=== PATIENT | female | born 1980 | race Caucasian/White ===

== ENCOUNTER 2018-12-17 11:46 | Outpatient (CLI) | payer MEDICAID ==
[2018-12-17] MEDS ORDERED: LACTATED RINGER'S 1,000 ML IV (15:00)
== END 2018-12-17 15:40 | disposition home or self-care (01) ==
LOC: OBT 11:46 → L-D 11:48 → OBT 15:40
DX: O26.853 Spotting complicating pregnancy, third trimester (principal); Z3A.37 37 weeks gestation of pregnancy
CPT/HCPCS: 76818

== ENCOUNTER 2018-12-19 13:35 | Inpatient (IN) | payer MEDICAID ==
[2018-12-19] MEDS: LACTATED RINGER'S 1,000 ML IV ×2 (16:37→16:55)
[2018-12-20] MEDS: LACTATED RINGER'S 1,000 ML IV ×2 (00:34→08:48)
== END 2018-12-20 14:15 | disposition home or self-care (01) | DRG 833 ==
LOC: OBT 13:35 → L-D 13:36 → OBT 15:30 → L-D 15:30
DX: O46.93 Antepartum hemorrhage, unspecified, third trimester (principal); O09.523 Supervision of elderly multigravida, third trimester; Z3A.37 37 weeks gestation of pregnancy
CPT/HCPCS: 76818

== ENCOUNTER 2019-01-06 15:15 | Inpatient (IN) | payer MEDICAID ==
[2019-01-06] MEDS ORDERED: CARBOPROST 250 MCG INJ IM (17:00)
[2019-01-06] MEDS ORDERED: MISOPROSTOL 200 MCG TAB PR (17:00)
[2019-01-06] MEDS ORDERED: METHYLERGONOVINE 0.2 MG INJ IM (17:00)
[2019-01-06] MEDS ORDERED: BUTORPHANOL 2 MG INJ IV ×2 (17:00)
[2019-01-06] MEDS ORDERED: OXYTOCIN 30 UNITS/LR 500 ML IV (17:00)
[2019-01-06] MEDS ORDERED: IBUPROFEN 600 MG TAB PO (17:00)
[2019-01-06] MEDS ORDERED: LIDOCAINE 1% (MPF) 30 ML INJ INJ (17:00)
[2019-01-06] MEDS: LACTATED RINGER'S 1,000 ML IV ×2 (17:32→22:06)
[2019-01-06 17:55] LABS: ADD MAN DIFF? NO
[2019-01-06 18:03] LABS: BASOPHILS % 0.4 % (0.0-2.0); EOSINOPHILS # 0.3 10^3/ul (0.0-0.5); EOSINOPHILS % 3.5 % (0.0-7.0); HEMATOCRIT 37.5 % (37.0-47.0); HEMOGLOBIN 12.8 g/dl (12.0-16.0); LYMPHOCYTES # 1.7 10^3/ul (0.8-2.9); LYMPHOCYTES % 19.1 % (15.0-51.0); MEAN CORPUSCULAR HEMOGLOBIN 30.3 pg (29.0-33.0); MEAN CORPUSCULAR HGB CONC 34.1 g/dl (32.0-37.0); MEAN CORPUSCULAR VOLUME 88.7 fl (82.0-101.0); MEAN PLATELET VOLUME 10.9 fl (7.4-10.4); MONOCYTE # 0.8 10^3/ul (0.3-0.9); MONOCYTES % 8.7 % (0.0-11.0); NEUTROPHIL # 6.1 10^3/ul (1.6-7.5); NEUTROPHILS % 67.4 % (39.0-77.0); PLATELET COUNT 229 10^3/UL (140-415); RED BLOOD COUNT 4.23 10^6/ul (4.20-5.40); RED CELL DISTRIBUTION WIDTH 13.5 % (11.5-14.5)
[2019-01-06 18:24] LABS: INR 0.87; PROTIME 11.9 Sec (11.9-14.9); PT RATIO 0.9
[2019-01-06 18:25] LABS: PARTIAL THROMBOPLASTIN TIME 28.1 Sec (23.0-35.0)
[2019-01-06] MEDS: OXYTOCIN 30 UNITS/LR 500 ML IV (18:39)
[2019-01-06 18:53] LABS: HEPATITIS B SURFACE ANTIGEN NEGATIVE (NEGATIVE)
[2019-01-06] MEDS ORDERED: NALOXONE (0.4 MG/ML) INJ IV (22:00)
[2019-01-06] MEDS ORDERED: DIPHENHYDRAMINE 50 MG INJ IV (22:00)
[2019-01-06] MEDS ORDERED: ONDANSETRON 4 MG INJ IV (22:00)
[2019-01-06] MEDS ORDERED: KETOROLAC 30 MG INJ IV (22:00)
[2019-01-06] MEDS ORDERED: FENTAnyl 2MCG/ML-ROPIV 0.2% 100 ML BAG EPI (22:00)
[2019-01-06] MEDS ORDERED: HYDROmorphONE 0.5 MG/0.5 ML SYG IV ×2 (22:00)
[2019-01-07] MEDS: LACTATED RINGER'S 1,000 ML IV (00:37)
[2019-01-07] MEDS ORDERED: OXYTOCIN 30 UNITS/LR 500 ML IV ×2 (03:37→04:00)
[2019-01-07] MEDS: OXYTOCIN 30 UNITS/LR 500 ML IV ×2 (03:45)
[2019-01-07] MEDS ORDERED: LANOLIN HPA 1 PKT TOP (04:00)
[2019-01-07] MEDS ORDERED: CARBOPROST 250 MCG INJ IM (04:00)
[2019-01-07] MEDS ORDERED: METHYLERGONOVINE 0.2 MG INJ IM (04:00)
[2019-01-07] MEDS ORDERED: MISOPROSTOL 200 MCG TAB PR (04:00)
[2019-01-07] MEDS ORDERED: ACETAMINOPHEN 325 MG TAB PO (04:00)
[2019-01-07] MEDS ORDERED: NACL 0.9% 3 ML SYG IV (04:00)
[2019-01-07] MEDS ORDERED: ONDANSETRON 4 MG INJ IV (04:00)
[2019-01-07] MEDS: IBUPROFEN 600 MG TAB PO ×2 (05:26→17:38)
[2019-01-07] MEDS: BENZOCAINE 20% 56 ML SPRAY TOP (09:24)
[2019-01-07] MEDS: SENNA/DOCUSATE NA (8.6MG/50MG) TAB PO ×2 (09:24→22:28)
[2019-01-07] MEDS: OXYCODONE/ASPIRIN (4.88/325) TAB PO ×2 (13:12→22:28)
[2019-01-07 17:23] LABS: RAPID PLASMA REAGIN NONREACTIVE (NR)
[2019-01-07] MEDS ORDERED: OXYCODONE/ASPIRIN (4.88/325) TAB PO ×2 (22:00)
[2019-01-08] MEDS: OXYCODONE/ASPIRIN (4.88/325) TAB PO (03:35)
[2019-01-08] MEDS: IBUPROFEN 600 MG TAB PO ×4 (06:13→18:28)
[2019-01-08 08:02] LABS: ADD MAN DIFF? NO
[2019-01-08 08:10] LABS: WHITE BLOOD COUNT 10.7 10^3/ul (4.8-10.8)
[2019-01-08 08:10] LABS: BASOPHIL # 0.1 10^3/ul (0.0-0.1); BASOPHILS % 0.6 % (0.0-2.0); EOSINOPHILS # 0.5 10^3/ul (0.0-0.5); EOSINOPHILS % 4.6 % (0.0-7.0); HEMOGLOBIN 11.4 g/dl (12.0-16.0); LYMPHOCYTES # 2.4 10^3/ul (0.8-2.9); LYMPHOCYTES % 22.2 % (15.0-51.0); MEAN CORPUSCULAR HGB CONC 33.5 g/dl (32.0-37.0); MEAN CORPUSCULAR VOLUME 89.5 fl (82.0-101.0); MEAN PLATELET VOLUME 10.6 fl (7.4-10.4); MONOCYTE # 0.7 10^3/ul (0.3-0.9); MONOCYTES % 6.1 % (0.0-11.0); NEUTROPHILS % 65.8 % (39.0-77.0); PLATELET COUNT 202 10^3/UL (140-415); RED CELL DISTRIBUTION WIDTH 13.8 % (11.5-14.5)
[2019-01-08] MEDS: SENNA/DOCUSATE NA (8.6MG/50MG) TAB PO ×2 (10:03→21:09)
[2019-01-09] MEDS: IBUPROFEN 600 MG TAB PO ×3 (00:36→11:54)
[2019-01-09] MEDS: WITCH HAZEL/GLYCERIN PAD PR (05:52)
[2019-01-09] MEDS: BENZOCAINE 20% 56 ML SPRAY TOP (05:52)
[2019-01-09] MEDS: SENNA/DOCUSATE NA (8.6MG/50MG) TAB PO (08:16)
[2019-01-09] MEDS: OXYCODONE/ASPIRIN (4.88/325) TAB PO (10:30)
[2019-01-09] MEDS: DIPHTH/TET/ACEL PERTUSS (ADULT) 0.5 ML VIAL IM* (13:22)
== END 2019-01-09 15:22 | disposition home or self-care (01) | DRG 807 ==
LOC: PP1 01-07 15:25 → L-D 15:15
PROVIDERS: Obstetrics & Gynecology
PROC: 10E0XZZ Delivery of Products of Conception, External Approach (ICD-10-PCS; principal; 2019-01-07)
PROC: 0W8NXZZ Division of Female Perineum, External Approach (ICD-10-PCS; 2019-01-07)
DX: O99.214 Obesity complicating childbirth (principal); Z37.0 Single live birth; E66.9 Obesity, unspecified; Z3A.40 40 weeks gestation of pregnancy; Z23 Encounter for immunization
CPT/HCPCS: 62322; 76815; 85025; 85610; 85730; 86592; 86850; 86900; 86901; 87340; 90715; 99464